=== PATIENT | male | born 1985 | race Caucasian/White ===

== ENCOUNTER 2017-01-02 13:42 | Emergency (ER) | payer OTHER ==
[~2017-01-02] VITALS: Ht 170.2 cm; Wt 62.0 kg
[~2017-01-02 13:42] MED LIST: ALEVE220 MG PO; ATIVAN1 MG PO; CARBAMAZEPINE200 M1 PO; CARBAMAZEPINE200 MG PO; DILANTIN PO; DILANTIN100 MG PO; ENDOCET 5-3251 EACH PO; EPITOL200 MG PO; IBUPROFEN800 MG PO; KEFLEX500 MG PO; LYRICA50 MG PO; METOPROLOL TART25 MG PO; MOTRIN800 MG PO; PEN-VEE K,VEET500 MG PO; TEGRETOL-XR,CA200 MG PO; TEGRETOL200 MG PO; TRAMADOL HCL50 MG PO
[2017-01-02 15:44] LABS: ADD MIUA? NO; BILIRUBIN NEGATIVE; BLOOD NEGATIVE; COLOR STRAW ((YELLOW)); GLUCOSE (STRIP) >=500; KETONES NEGATIVE; LEUKOCYTES NEGATIVE; NITRITE NEGATIVE; PROTEIN (STRIP) NEGATIVE; SPECIFIC GRAVITY 1.003 (1.000-1.030); UROBILINOGEN 0.2 MG/DL (0.2-1.0)
[2017-01-02 15:55] LABS: CHLORIDE 104 mEq/L (99-109)
[2017-01-02 15:56] LABS: POTASSIUM 3.8 mEq/L (3.7-5.4); SODIUM 136 mEq/L (136-147)
[2017-01-02 15:57] LABS: GLUCOSE 290 mg/dL (70-99)
[2017-01-02 15:59] LABS: ANION GAP 11 MEQ/L (2-14)
[2017-01-02 16:01] LABS: GFR ESTIMATE (CALCULATED) > 59 mL/min/
[2017-01-02 16:02] LABS: UREA NITROGEN (BUN) 14 mg/dL (9-23)
[2017-01-02 16:04] LABS: CREATINE KINASE 81 IU/L (1-294)
[2017-01-02] MEDS ORDERED: MOTRIN600 MG PO (16:48)
[2017-01-02] MEDS ORDERED: FLEXERIL5 MG PO (16:48)
[2017-01-02] MEDS ORDERED: TEGRETOL200 MG PO (16:48)
[2017-01-02 17:00] VITALS: BP 146/104
[2017-01-02 18:13] LABS: Estimated Average Glucose 108 mg/dL (70-123); HEMOGLOBIN A1c (GLYCOHEMOGLOB) 5.4 % HGB (Below 5.7)
== END 2017-01-02 17:03 | disposition home or self-care (01) ==
LOC: EME 13:42
PROVIDERS: Physician Assistant
DX: G40.909 Epilepsy, unspecified, not intractable, without status epilepticus (principal); F41.9 Anxiety disorder, unspecified; M54.9 Dorsalgia, unspecified; G89.29 Other chronic pain; R73.9 Hyperglycemia, unspecified; F43.23 Adjustment disorder with mixed anxiety and depressed mood; F12.10 Cannabis abuse, uncomplicated; F11.10 Opioid abuse, uncomplicated; F14.10 Cocaine abuse, uncomplicated; F17.200 Nicotine dependence, unspecified, uncomplicated
CPT/HCPCS: 80048; 81003; 82550; 83036; 90839; 99281; 99284